=== PATIENT | female | born 2000 | race Caucasian/White ===

== ENCOUNTER 2020-02-23 23:00 | Emergency (ER) | payer OTHER ==
[~2020-02-23] VITALS: Ht 172.7 cm; Wt 88.6 kg
--- NOTE | 2020-02-24 01:34 | RAD ---
CT pelvis without contrast: Reason for examination: Pelvic pain. Helical images were obtained through the pelvis with no contrast administration. Reconstruction was performed in sagittal and coronal planes. Exposure: One or more of the following individualized dose reduction techniques were utilized for this examination: 1. Automated exposure control 2. Adjustment of the mA and/or kV according to patient size 3. Use of iterative reconstruction technique. No abnormality seen at the bladder. No gross abnormalities apparent at the uterus. There are however complex cystic appearing masses in the adnexa bilaterally measuring approximately 5 cm on the right and 3.7 cm on the left with some free fluid possibly blood in the pelvic cul-de-sac. Further evaluation with ultrasound is recommended. No acute bony abnormalities are seen. IMPRESSION: Complex cystic appearing masses in the adnexa with fluid possibly blood in the pelvis. Recommend further evaluation with pelvic ultrasound. Electronically signed by: Bernda Lentz MD (02/24/2020 1:31 AM) [id number]
--- NOTE | 2020-02-24 02:12 | RAD ---
Pelvic ultrasound with transvaginal: Reason for examination: Severe pelvic pain history of cysts. Transabdominally, the uterus appears to be normal in size without a focal lesion. Adnexa are not well visualized transabdominally. Transvaginally, uterus measures 7.8 x 3.2 x 4.1 cm in greatest dimension with no uterine mass. Endometrium is not abnormally thickened at 6 mm. There is a small nabothian cyst in cervix. Complex fluid probably representing blood is present in the pelvis which may represent ruptured hemorrhagic cysts. The left ovary measures 3.1 x 2.5 x 1.9 cm in greatest dimension and shows good vascular flow but there are multiple small follicles throughout the ovary. In the right adnexa, the right ovary measures approximately 5.4 x 3.6 cm in greatest dimension and contains multiple small follicles with possible is larger cyst centrally measuring approximately 2 cm in size. There appears to be good vascular flow in the right ovary. IMPRESSION: Complex fluid in the pelvis probably representing blood. Multiple follicles throughout both ovaries with possible 2 cm cystic lesion in the central right ovary. No evidence of ovarian torsion. Electronically signed by: Brenda Lentz MD (02/24/2020 2:09 AM) [id number]
[2020-02-24 02:30] VITALS: BP 124/72
[2020-02-24] MEDS ORDERED: oxyCODONE/APAP 5/325 1 TAB TABLET PO ONE (02:30)
[2020-02-24] MEDS ORDERED: oxyCODONE/APAP 5/325 1 TAB TABLET ONE (02:32)
--- NOTE | 2020-02-24 02:35 | PHYS DOC ---
Past History Past Medical History: Ovarian Cyst, UTI Past Surgical History: No Surgical History Alcohol Use: None Adult General Chief Complaint Chief Complaint: GROIN PAIN HPI HPI Patient is a 19 year old female who presents with lower pelvic pain that started during sex. Patient states that she was having sex with her and during she had sudden onset lower abdominal cramping and pain. This is unusual for her. She denies any vaginal bleeding after this. She states that pain is significantly worse if she tries to stand up or move around. She states that she recently went off of control as they are trying to have a baby but does not believe that she is at this time. She denies any chest pain, shortness of breath, dizziness, syncope. Review of Systems Review of Systems General: Denies fever, chills, sweats, fatigue Eyes: Denies drainage, blurred vision, eye redness HENT: Denies rhinorrhea, sore throat, earache Respiratory: Denies cough, shortness of breath, wheezing Cardiac: Denies edema, palpitations, chest pain GI: Denies abdominal pain, Nausea, vomiting reports pelvic pain MSK: Denies back pain, neck pain Skin: Denies rash, jaundice Neuro: Denies headache, dizziness Psychiatric: Denies SI/HI Current Medications Current Medications Current Medications Medications (Trade) Dose Ordered Sig/Colin Start Time Stop Time Status Last Admin Dose Admin Oxycodone/ Acetaminophen (Percocet 5/325) 1 tab 1X ONCE 02/24/20 02:30 02/24/20 02:31 UNV Allergies Allergies Allergies Coded Allergies Type Severity Reaction Last Updated Verified Penicillins Allergy Mild HIVES 02/23/20 Yes Physical Exam Physical Exam Constitutional: Well developed, well nourished, no acute distress, non-toxic appearance. HENT: Normocephalic, atraumatic, bilateral external ears normal, nose normal. Eyes: PERRLA, EOMI, conjunctiva normal, no discharge. Neck: Normal range of motion, no stridor. Cardiovascular: Heart rate regular rhythm Lungs & Thorax: Respirations even and unlabored, no retractions, no respiratory distress Pelvic Exam: Inspector Filters present Abdomen: Nontender, soft, lower pelvic tenderness External Genitalia: Normal Skin Speculum: Normal vaginal mucosa, normal cervical discharge Bimanual: No adnexal masses or tenderness, No CMT, cysts on cervix Skin: Warm, dry, no erythema, no rash. Back: No tenderness Extremities: No cyanosis, ROM intact, no edema. Neurologic: Alert and oriented X 3, no focal deficits noted. Psychologic: Affect normal, judgement normal, mood normal. Current Patient Data Vital Signs Vital Signs Date Time Temp Pulse Resp B/P (MAP) Pulse Ox O2 Delivery O2 Flow Rate FiO2 02/23/20 23:18 98.6 89 18 165/71 (102) 98 Room Air Lab Results Microbiology 02/23/20 Wet Prep - Final, Complete EKG EKG [] Radiology/Procedures Radiology/Procedures [] Course & Med Decision Making Course & Med Decision Making Pertinent Labs and Imaging studies reviewed. (See chart for details) Patient is a 19-year-old female who presents to the emergency room complaining of sudden onset lower pelvic pain. Pelvic exam was done and patient has some cysts on her cervix but otherwise exam is normal. She is never had a pelvic exam previously and I have discussed with her that she will need to follow-up with an KNIFE SETTER GRINDER MACHINE for further testing. Wet mount, GC, chlamydia swabs were collected. Wet mount was normal. Ultrasound was ordered to rule out ovarian torsion, however due to delay of injection maintenance technician a CT pelvis was ordered to evaluate for any signs of torsion or mass. CT shows free fluid and cystic structures. Ultrasound shows free fluid with flow to bilateral ovaries. I have discussed with patient admission for observation for likely hemorrhagic cyst. Patient does not want to be admitted at this time. She would like to go home and follow-up. I have discussed with her that if she develops any shortness of breath, chest pain, dizziness, syncope, worsening abdominal pain she should ret urn emergently to the emergency room for evaluation and admission at that time. Patient states her understanding. She will follow-up with KNIFE SETTER GRINDER MACHINE this week. CBC was drawn for baseline prior to discharge. Patient was given pain medicine here in the emergency room. She will stay with her over the next 24 hours so that she can be observed. I have discussed with her that there is a possibility that she is still bleeding or may start bleeding again and may need surgical intervention for this. Patient states her understanding. Patient's test results and vitals while in the ED were fully reviewed and discussed with the patient. Patient is stable and at this time does not need admission to the hospital. We have discussed strict return precautions and the importance of following up with their Primary Care Physician. Patient stated understanding and was given an opportunity to ask any questions. Patient is in agreement with plan. Dragon Disclaimer Dragon Disclaimer This electronic medical record was generated, in whole or in part, using a voice recognition dictation system. Departure Departure: Impression: Primary Impression: Hemorrhagic cyst of ovary Disposition: HOME/RESIDENCE PRIOR TO ADM Condition: STABLE Referrals: PCP,UNKNOWN (PCP) Patient Instructions: Ovarian Cyst Additional Instructions: Please return to the Emergency Room urgently if you develop worsening abdominal pain, shortness of breath, dizziness, or you pass out. It is possible you could have some continued bleeding and it is very important that you stay with your over the next 24 hours to be observed. If anything changes, please come back for evaluation. Justification of Admission: Justification of Admission: Justification of Admission Dx: Yes ALBERTA ROBERTS MD Feb 24, 2020 02:35
[2020-02-24 02:52] LABS: HEMATOCRIT 41.5 % (36.0-47.0); HEMOGLOBIN 13.7 g/dL (12.0-15.5); RED BLOOD COUNT 5.23 x10^6/uL (3.50-5.40); RED CELL DISTRIBUTION WIDTH 15.2 % (11.5-14.5); WHITE BLOOD COUNT 13.6 x10^3/uL (4.0-11.0)
[2020-02-24 04:56] LABS: BILIRUBIN,URINE NEG (NEG); CLARITY,URINE HAZY; COLOR,URINE YELLOW; GLUCOSE,URINE NEG (NEG)
[2020-02-24 04:57] LABS: BACTERIA,URINE FEW /HPF (0-FEW); NITRITE,URINE NEG (NEG); RBC,URINE OCC /HPF (0-2); SQUAMOUS EPITHELIAL CELL,UR FEW /LPF; UROBILINOGEN,URINE 0.2 mg/dL (0.2 mg/dL); WBC,URINE 0 /HPF (0-4)
[2020-02-25] MEDS ORDERED: HYDR-3165 PO (17:11)
[2020-02-26 21:06] LABS: CHLAMYDIA PROBE Negative (Negative)
== END 2020-02-24 02:40 | disposition home or self-care (01) ==
LOC: ER 23:00
DX: N83.201 Unspecified ovarian cyst, right side (principal); N83.202 Unspecified ovarian cyst, left side; Z87.440 Personal history of urinary (tract) infections; Z88.0 Allergy status to penicillin
CPT/HCPCS: 36415; 72192; 76830; 76856; 81001; 85027; 87491; 87591; 99285; Q0111

== ENCOUNTER 2020-02-25 14:57 | Emergency (ER) | payer OTHER ==
[~2020-02-25] VITALS: Ht 172.7 cm; Wt 87.1 kg
[2020-02-25] MEDS ORDERED: IV NORMAL SALINE 1,000ML 1,000 ML IV ONE (16:00)
[2020-02-25] MEDS ORDERED: KETOROLAC 15 MG/ML VIAL. IVP ONE (16:30)
[2020-02-25 16:48] LABS: BASO # 0.1 x10^3/uL (0.0-0.2); BASO % 1 % (0-3); EOS % 0 % (0-3); HEMATOCRIT 38.6 % (36.0-47.0); HEMOGLOBIN 13.2 g/dL (12.0-15.5); LYMPH # 1.7 x10^3/uL (1.0-4.8); LYMPH % 17 % (24-48); MEAN CORPUSCULAR HEMOGLOBIN 27 pg (25-35); MEAN CORPUSCULAR HGB CONC 34 g/dL (31-37); MEAN CORPUSCULAR VOLUME 79 fL (79-100); MONO # 0.6 x10^3/uL (0.0-1.1); MONO % 7 % (0-9); NEUT # 7.5 x10^3uL (1.8-7.7); NEUT % 75 % (31-73); PLATELET COUNT 293 x10^3/uL (140-400); RED CELL DISTRIBUTION WIDTH 15.3 % (11.5-14.5); WHITE BLOOD COUNT 9.9 x10^3/uL (4.0-11.0)
[2020-02-25] MEDS ORDERED: HYDR-3165 PO (17:11)
--- NOTE | 2020-02-25 17:12 | PHYS DOC ---
Past History Past Medical History: Ovarian Cyst, UTI Past Surgical History: No Surgical History Alcohol Use: None General Adult EDM: Chief Complaint: ABDOMINAL PAIN HPI: HPI: Patient is a [age] year old [sex] who presents with [] Review of Systems: Review of Systems: Constitutional: Denies fever or chills Eyes: Denies change in visual acuity HENT: Denies nasal congestion or sore throat Respiratory: Denies cough or shortness of breath Cardiovascular: Denies chest pain or edema GI: Denies abdominal pain, nausea, vomiting, bloody stools or diarrhea : Denies dysuria Musculoskeletal: Denies back pain or joint pain Integument: Denies rash Neurologic: Denies headache, focal weakness or sensory changes Endocrine: Denies polyuria or polydipsia Lymphatic: Denies swollen glands Psychiatric: Denies depression or anxiety Heart Score: Risk Factors: Risk Factors: DM, Current or recent (<one month) smoker, HTN, HLP, family history of CAD, obesity. Risk Scores: Score 0 - 3: 2.5% MACE over next 6 weeks - Discharge Home Score 4 - 6: 20.3% MACE over next 6 weeks - Admit for Clinical Observation Score 7 - 10: 72.7% MACE over next 6 weeks - Early Invasive Strategies Current Medications: Current Meds: Current Medications Medications (Trade) Dose Ordered Sig/Colin Start Time Stop Time Status Last Admin Dose Admin Ketorolac Tromethamine (Toradol 15mg Vial) 15 mg 1X ONCE 02/25/20 16:30 02/25/20 16:31 DC 02/25/20 16:29 15 MG Sodium Chloride 1,000 ml @ 1,000 mls/hr 1X ONCE 02/25/20 16:00 02/25/20 16:59 DC 02/25/20 16:00 1,000 MLS/HR Allergies: Allergies: Allergies Coded Allergies Type Severity Reaction Last Updated Verified Penicillins Allergy Mild HIVES 02/23/20 Yes Physical Exam: PE: Constitutional: Well developed, well nourished, no acute distress, non-toxic appearance. [] HENT: Normocephalic, atraumatic, bilateral external ears normal, oropharynx moist, no oral exudates, nose normal. [] Eyes: PERRLA, EOMI, conjunctiva normal, no discharge. [] Neck: Normal range of motion, no tenderness, supple, no stridor. [] Cardiovascular:Heart rate regular rhythm, no murmur [] Lungs & Thorax: Bilateral breath sounds clear to auscultation [] Abdomen: Bowel sounds normal, soft, no tenderness, no masses, no pulsatile masses. [] Skin: Warm, dry, no erythema, no rash. [] Back: No tenderness, no CVA tenderness. [] Extremities: No tenderness, no cyanosis, no clubbing, ROM intact, no edema. [] Neurologic: Alert and oriented X 3, normal motor function, normal sensory function, no focal deficits noted. [] Psychologic: Affect normal, judgement normal, mood normal. [] Current Patient Data: Labs: Laboratory Tests Test 02/25/20 16:25 White Blood Count 9.9 x10^3/uL (4.0-11.0) Red Blood Count 4.90 x10^6/uL (3.50-5.40) Hemoglobin 13.2 g/dL (12.0-15.5) Hematocrit 38.6 % (36.0-47.0) Mean Corpuscular Volume 79 fL (79-100) Mean Corpuscular Hemoglobin 27 pg (25-35) Mean Corpuscular Hemoglobin Concent 34 g/dL (31-37) Red Cell Distribution Width 15.3 % (11.5-14.5) H Platelet Count 293 x10^3/uL (140-400) Neutrophils (%) (Auto) 75 % (31-73) H Lymphocytes (%) (Auto) 17 % (24-48) L Monocytes (%) (Auto) 7 % (0-9) Eosinophils (%) (Auto) 0 % (0-3) Basophils (%) (Auto) 1 % (0-3) Neutrophils # (Auto) 7.5 x10^3uL (1.8-7.7) Lymphocytes # (Auto) 1.7 x10^3/uL (1.0-4.8) Monocytes # (Auto) 0.6 x10^3/uL (0.0-1.1) Eosinophils # (Auto) 0.0 x10^3/uL (0.0-0.7) Basophils # (Auto) 0.1 x10^3/uL (0.0-0.2) Vital Signs: Vital Signs Date Time Temp Pulse Resp B/P (MAP) Pulse Ox O2 Delivery O2 Flow Rate FiO2 02/25/20 14:57 98.8 103 18 129/72 (91) 97 Room Air EKG: EKG: [] Radiology/Procedures: Radiology/Procedures: [] Course & Med Decision Making: Course & Med Decision Making Pertinent Labs and Imaging studies reviewed. (See chart for details) [] Dragon Disclaimer: Dragon Disclaimer: This electronic medical record was generated, in whole or in part, using a voice recognition dictation system. Departure Departure: Impression: Primary Impression: Pelvic pain Additional Impression: Hemorrhagic ovarian cyst Disposition: HOME/RESIDENCE PRIOR TO ADM Condition: STABLE Referrals: PCP,NO (PCP) Patient Instructions: Ovarian Cyst, [id number], Pelvic Pain, Female, [id number] Additional Instructions: Use over the counter Ibuprofen (600mg which is 3 over the counter tabs) three time daily as needed for pain. Can take prescription pain medication in between dose of Ibuprofen. Call you insurance for referral for PRINTED CIRCUIT BOARDS CONTACT PRINTER. Call and make an appointment to see a PRINTED CIRCUIT BOARDS CONTACT PRINTER in the next 1 week. Scripts Hydrocodone Bit/Acetaminophen (NORCO 5-325 TABLET) 1 Each Tablet 0.5-1 TAB PO Q6HRS PRN for PAIN, #10 TAB Prov: EVERETT ZHU DO 02/25/20 Justification of Admission: Justification of Admission: Justification of Admission Dx: N/A EVERETT ZHU DO Feb 25, 2020 17:12
[2020-02-25 17:19] VITALS: BP 129/69
== END 2020-02-25 17:19 | disposition home or self-care (01) ==
LOC: ER 14:57
DX: N83.209 Unspecified ovarian cyst, unspecified side (principal); R10.2 Pelvic and perineal pain; Z87.440 Personal history of urinary (tract) infections; Z88.0 Allergy status to penicillin
CPT/HCPCS: 36415; 85025; 96374; 99283; J1885; J7030

== ENCOUNTER 2020-04-06 09:02 | Emergency (ER) | payer OTHER ==
[~2020-04-06] VITALS: Ht 167.6 cm; Wt 91.9 kg
[~2020-04-06 09:02] MED LIST: HYDR-3165 PO
[2020-04-06 09:34] LABS: U PREG PATIENT NEGATIVE (NEG)
--- NOTE | 2020-04-06 09:58 | PHYS DOC ---
Past History Past Medical History: Ovarian Cyst, UTI Past Surgical History: No Surgical History Smoking: Non-smoker Alcohol Use: None Drug Use: None General Adult EDM: Chief Complaint: VAGINAL PROBLEM HPI: HPI: 19 yo F has medical history of hemorrhagic cysts 1 month ago and was seen in this ER, presents the ED with complaints of pelvic pain and dysuria that started last night. Patient states this resembles her past ER visit. Reports she missed her menses, LMP was beginning of March. 1 male sexual partner (), using no protection. Multiple home urine test were negative. Reports she was seen by her primary care physician Dr. Dos Santos on Tuesday and tested negative for chlamydia and gonorrhea, blood test was negative at that time. Had a UTI 2 weeks ago. EMR was reviewed and patient had a CT of the abdomen pelvis and a transvaginal ultrasound in January 2020 that showed 2 cm right ovarian cyst, no evidence of ovarian torsion. ROS: Denies any vaginal bleeding, associated abnormal vaginal discharge itching or odor, nausea, vomiting, diarrhea, leg swelling, rash, hemoptysis, headache, neck stiffness, fever, chills, cough, sore throat, leg swelling, dyspnea, chest pain or headache. Review of Systems: Review of Systems: Constitutional: Denies fever or chills Eyes: Denies change in visual acuity HENT: Denies nasal congestion or sore throat Respiratory: Denies cough or shortness of breath Cardiovascular: Denies chest pain or edema GI: Denies abdominal pain, nausea, vomiting, bloody stools or diarrhea : Denies dysuria Musculoskeletal: Denies back pain or joint pain Integument: Denies rash Neurologic: Denies headache, focal weakness or sensory changes Endocrine: Denies polyuria or polydipsia Lymphatic: Denies swollen glands Psychiatric: Denies depression or anxiety Heart Score: Risk Factors: Risk Factors: DM, Current or recent (<one month) smoker, HTN, HLP, family history of CAD, obesity. Risk Scores: Score 0 - 3: 2.5% MACE over next 6 weeks - Discharge Home Score 4 - 6: 20.3% MACE over next 6 weeks - Admit for Clinical Observation Score 7 - 10: 72.7% MACE over next 6 weeks - Early Invasive Strategies Allergies: Allergies: Allergies Coded Allergies Type Severity Reaction Last Updated Verified Penicillins Allergy Mild HIVES 02/23/20 Yes Physical Exam: PE: Constitutional: Well developed, well nourished, no acute distress, non-toxic appearance. [] HENT: Normocephalic, atraumatic, Eyes: EOMI, conjunctiva normal, no discharge. [] Neck: Normal range of motion, no tenderness, supple, no stridor. [] Cardiovascular:Heart rate regular rhythm, no murmur [] Lungs & Thorax: Bilateral breath sounds clear to auscultation [] Abdomen: Bowel sounds normal, soft, no tenderness, no masses, no pulsatile masses. [] Skin: Warm, dry, no erythema, no rash. [] Back: No tenderness, no CVA tenderness. [] Extremities: No tenderness, no cyanosis, no clubbing, ROM intact, no edema. [] Neurologic: Alert and oriented X 3, normal motor function, normal sensory function, no focal deficits noted. [] Psychologic: Affect normal, judgement normal, mood normal. [] Pelvic: Chaperoned by RN, normal external genitalia, white discharge, cervical os closed, no cervical erythema, no CMT or adnexal tenderness, tolerated exam well Current Patient Data: Labs: Laboratory Tests Test 04/06/20 09:12 Urine Test Negative (NEG) Vital Signs: Vital Signs Date Time Temp Pulse Resp B/P (MAP) Pulse Ox O2 Delivery O2 Flow Rate FiO2 04/06/20 09:02 98.5 107 18 117/75 (89) 96 Room Air EKG: EKG: [] Radiology/Procedures: Radiology/Procedures: []IMAGING REPORT Signed PATIENT: OCHOA SHERIDAN LACCOUNT: [id number] : 2000 LOCATION: ER AGE: 19 SEX: F EXAM STATUS: REG ER ORD. PHYSICIAN: WILLI BYERS DO REASON: pelvic pain, h/o ovarian cysts PROCEDURE: US PELVIS W/TV US PELVIS W/TV History: Reason: pelvic pain, h/o ovarian cysts / Spl. Instructions: / History: Comparison: February 24, 2020. Technique: Grayscale and color Doppler imaging of the pelvis was performed using transabdominal and transvaginal technique. Findings: The uterus measures 7.8 x 4.1 x 3.2 cm. Uterus has an unremarkable appearance. The endometrial stripe measures 6 mm. Right ovary measures 5.0 x 4.0 x 3.6 cm. Right ovarian lesion measures 5.0 cm with heterogeneous appearance of internal complexity. No internal blood flow identified. Normal Doppler blood flow to the right ovary. Left ovary measures 3.1 x 2.5 x 1.9 cm. Elongated appearance of the left ovary. Multiple small follicles. Normal Doppler flow to the left ovary. Complex small bilateral adnexal fluid, right greater than left. IMPRESSION: 1. Right ovarian lesion, may represent hemorrhagic cyst or endometrioma. Recommend short-term 6-12 week follow-up to ensure resolution. 2. Small complex pelvic fluid, may represent blood products. 3. Elongated appearance of the left ovary. Recommend attention on follow-up Electronically signed by: Jose Arechiga DO (04/06/2020 11:42 AM) [facility] Course & Med Decision Making: Course & Med Decision Making Pertinent Labs and Imaging studies reviewed. (See chart for details) U/A contaminated, negative urine preg hcg 2. TVUS with 5 cm right complex ovarian lesion that could represent hemorrhagic cyst versus endometrioma -if this is a hemorrhagic cyst it has increased from size from prior imaging. Will need senior internal auditor ex lap to evaluate for endometriosis. Patient with no active vaginal bleeding. No abnormal vaginal discharge. No CMT or adnexal tenderness or abnormal dc to suggest tubo-ovarian abscess. Patient was recently treated for chlamydia and gonorrhea. Patient is afebrile, heart rate in normal range at time of dc. Pt calm and in no distress. Will DC home with MODELING ANALYST follow-up and strict ED return precautions for severe abdominal pain-ovarian torsion precaut ions, nsaids prn pain. Encouraged urgent outpatient follow-up with PMD and VEIN ACCESS TECHNICIAN. Life-threatening processes were considered but are low suspicion at this time, given history and physical exam. Pt was educated on all prescription medications and adverse effects. All patient's questions were answered and pt was stable at time of discharge. Differential includes aortic dissection, aortic aneurysm, acute coronary syndrome, surgical abdomen (appendicitis, cholecystitis, ischemic bowel, strangulated hernia, etc), bowel obstruction or volvulus, bladder outlet obstruction, gastrointestinal bleeding, inflammatory bowel disease, peptic ulcer disease, sepsis, diverticular disease, ureterolithiasis, nephrolithiasis, ovarian or testicular torsion, ectopic , vaginal hemorrhage of infection I spoken with the patient and her caregivers. I explained the patient's condition, diagnoses and treatment plan based on the information available to me at this time. I have answered the patient and her caregiver's questions and addressed any concerns. The patient and her caregivers have a good understanding of patient's diagnosis, condition and treatment plan as can be expected at this point. Vital signs have been stable. Patient's condition is stable and appropriate for discharge from the emergency department. Patient will pursue further outpatient evaluation with primary care physician or other designated or consulting physician as outlined in the discharge instructions. The patient and/or caregivers are agreeable to this plan of care and follow-up instructions have been explained in detail. The patient and/or caregivers have received these instructions in written form and have expressed an understanding of the discharge instructions. The patient and/or caregivers are aware that any significant change of condition or worsening of symptoms should prompt immediate return to this or the closest emergency department or call to 911. Brown Disclaimer: Brown Disclaimer: This electronic medical record was generated, in whole or in part, using a voice recognition dictation system. Departure Departure: Impression: Primary Impression: Abdominal pain Disposition: 01 HOME/RESIDENCE PRIOR TO ADM Condition: STABLE Referrals: PCP,NO (PCP) Patient Instructions: Abdominal Pain, Endometriosis, Ovarian Cyst Additional Instructions: Alex Arechiga MD Obstetrics and Gynecology [facility] MODELING ANALYST Address: [address] [place] [address] Justification of Admission: Justification of Admission: Justification of Admission Dx: N/A WILLI BYERS DO Apr 06, 2020 09:58
[2020-04-06 10:00] LABS: BACTERIA,URINE MOD /HPF (0-FEW); BILIRUBIN,URINE NEG (NEG); CLARITY,URINE CLOUDY; COLOR,URINE YELLOW; GLUCOSE,URINE NEG (NEG); NITRITE,URINE NEG (NEG); RBC,URINE OCC /HPF (0-2); SQUAMOUS EPITHELIAL CELL,UR MANY /LPF; UROBILINOGEN,URINE 0.2 mg/dL (0.2 mg/dL)
[2020-04-06] MEDS ORDERED: diazePAM 5 MG TABLET. PO ONE (10:15)
[2020-04-06 10:33] LABS: BASO % 0 % (0-3); EOS % 0 % (0-3); HEMATOCRIT 35.8 % (36.0-47.0); HEMOGLOBIN 12.3 g/dL (12.0-15.5); LYMPH # 0.7 x10^3/uL (1.0-4.8); LYMPH % 16 % (24-48); MEAN CORPUSCULAR HEMOGLOBIN 28 pg (25-35); MEAN CORPUSCULAR HGB CONC 34 g/dL (31-37); MEAN CORPUSCULAR VOLUME 82 fL (79-100); MONO # 0.5 x10^3/uL (0.0-1.1); MONO % 12 % (0-9); NEUT # 3.2 x10^3uL (1.8-7.7); NEUT % 72 % (31-73); PLATELET COUNT 264 x10^3/uL (140-400); RED BLOOD COUNT 4.39 x10^6/uL (3.50-5.40); RED CELL DISTRIBUTION WIDTH 15.6 % (11.5-14.5); WHITE BLOOD COUNT 4.5 x10^3/uL (4.0-11.0)
[2020-04-06 10:50] LABS: CALCIUM 8.2 mg/dL (8.5-10.1); CREATININE 0.9 mg/dL (0.6-1.0); GFR 80.7; POTASSIUM 3.8 mmol/L (3.5-5.1)
--- NOTE | 2020-04-06 11:45 | RAD ---
US PELVIS W/TV History: Reason: pelvic pain, h/o ovarian cysts / Spl. Instructions: / History: Comparison: February 24, 2020. Technique: Grayscale and color Doppler imaging of the pelvis was performed using transabdominal and transvaginal technique. Findings: The uterus measures 7.8 x 4.1 x 3.2 cm. Uterus has an unremarkable appearance. The endometrial stripe measures 6 mm. Right ovary measures 5.0 x 4.0 x 3.6 cm. Right ovarian lesion measures 5.0 cm with heterogeneous appearance of internal complexity. No internal blood flow identified. Normal Doppler blood flow to the right ovary. Left ovary measures 3.1 x 2.5 x 1.9 cm. Elongated appearance of the left ovary. Multiple small follicles. Normal Doppler flow to the left ovary. Complex small bilateral adnexal fluid, right greater than left. IMPRESSION: 1. Right ovarian lesion, may represent hemorrhagic cyst or endometrioma. Recommend short-term 6-12 week follow-up to ensure resolution. 2. Small complex pelvic fluid, may represent blood products. 3. Elongated appearance of the left ovary. Recommend attention on follow-up Electronically signed by: Jose Arechiga DO (04/06/2020 11:42 AM) [facility]
[2020-04-06 12:05] VITALS: BP 110/68
== END 2020-04-06 12:20 | disposition home or self-care (01) ==
LOC: ER 09:02
DX: R10.2 Pelvic and perineal pain (principal); R30.0 Dysuria; Z87.440 Personal history of urinary (tract) infections
CPT/HCPCS: 36415; 76830; 76856; 80048; 81001; 81025; 84702; 85025; 87086; 99284